=== PATIENT | female | born 1960 | race Caucasian/White ===

== ENCOUNTER 2020-12-02 18:14 | Emergency (ER) | payer SELFPAY ==
--- NOTE | ~2020-12-02 | XR_ITS ---
XR knee RT 3V DATE: 12/02/2020 19:05 INDICATION: Leg injury from dog TECHNIQUE: 3 views including crosstable lateral COMPARISON: None FINDINGS: There is tricompartment osteoarthritis, greatest at medial compartment. No fracture or dislocation or joint effusion. No periosteal reaction or bone destruction. IMPRESSION: Osteoarthritis Reviewed, dictated and finalized at location A. IMPRESSION: Osteoarthritis
--- NOTE | 2020-12-02 18:27 | ED.LOWEXIN ---
HPI - Extremity Injury (Lower) General Chief Complaint: Extremity Injury, Lower Stated Complaint: fell hurt knee Time Seen by Provider: 12/02/20 18:28 Source: patient Mode of arrival: wheelchair Limitations: no limitations History of Present Illness HPI Narrative: 59-year-old woman with a history of osteoarthritis of the knees comes in today complaining of right knee pain that started after a dog ran in to the lateral aspect of her right knee. She states she has only limited weight-bearing. She denies any numbness or tingling. She denies any other injury. She has had injections for OA in her left knee but not her right. complaint: knee injury, leg injury and fall Type of Injury: blunt Severity: moderate Relieving factors: rest Exacerbating factors: weight bearing, movement and palpation Associated symptoms: able to partially bear weight Other symptoms: none Related Data Home Medications Medication Instructions Recorded Confirmed albuterol sulfate [ProAir HFA] 1 inh INHALATION QID PRN 12/02/20 12/02/20 fluticasone propion-salmeterol 1 inh INHALATION Q12H 12/02/20 12/02/20 [Advair Diskus] loratadine [Claritin] 10 mg PO DAILY 12/02/20 12/02/20 Allergies Allergy/AdvReac Type Severity Reaction Status Date / Time No Known Allergies Allergy Verified 12/02/20 18:41 Review of Systems Gastrointestinal: Gastrointestinal: Denies nausea and Denies vomiting Musculoskeletal: Musculoskeletal: Denies back pain and Reports arthralgias Integumentary/Breasts: Skin/Breast: Denies pruritus and Denies rash Neurologic: Denies vertigo and Denies syncope Hematologic/Lymphatic: Hematologic/Lymphatic: Denies easy bleeding and Denies easy bruising Allergic/Immunologic: Allergic/Immunologic: Denies lip swelling and Denies throat swelling [facility] Past Medical History Medical History (Updated 12/02/20 @ 19:25 by Dick Ledesma MD) Asthma Osteoarthritis Social History Social History (Updated 12/02/20 @ 18:42 by Dick Ledesma MD) Smoking status: Never smoker Alcohol intake: current Alcohol use details: rarely Substance use: never Living arrangements: with family Gender identity (if verbalized by the patient): Female Exam Const: General: healthy appearing and alert Orientation/consciousness: patient oriented x3 Limitations: no limitations Other: Moderate acute distress Eyes: Conjunctivae: conjunctivae normal Pupils: Equal, round and reactive pupils present EOM: EOMs intact bilaterally Resp: Effort & Inspection: normal respiratory effort and not labored Auscultation: clear to auscultation bilaterally, no rales, no rhonchi and no wheezes Cardio: Rhythm: regular rhythm Heart sounds: no murmurs Skin: General skin exam: normal color, no jaundice and no pallor Rashes: no rashes Neuro: General: patient oriented x3, moves all extremities, no focal motor deficits and CN's II-XI intact bilaterally Speech: normal speech Gait exam (Neuro): Normal gait present Extrem: General: normal to inspection and no clubbing, cyanosis or edema Other: There is mild swelling of the right knee and tenderness to palpation along the mediolateral joint lines of the right knee. There is no evident laxity to varus, valgus, anterior drawer and Maurice's stress of the knee. Exam was somewhat limited by discomfort. There is also bruising and swelling over the proximal fibula. Psych: Appearance: grossly normal and well kempt Mental Status: mental status grossly normal Affect: normal affect Attitude: cooperative Thought content: Yes Normal thought content present Course Vital Signs Vital signs: Vital Signs Temperature 36.3 C L 12/02/20 18:34 Pulse Rate 72 12/02/20 18:34 Respiratory Rate 20 12/02/20 18:34 Blood Pressure 146/80 H 12/02/20 18:34 Pulse Oximetry 97 12/02/20 18:34 Temperature 36.3 C L 12/02/20 18:34 Pulse Rate 72 12/02/20 18:34 Respiratory Rate 20 12/02/20 18:34 Blood Pres
[2020-12-02 18:34] VITALS: BP 146/80; PULSE 72; RESP 20; TEMP 36.3; O2SAT 97
[2020-12-02 19:58] VITALS: BP 147/72; PULSE 76; RESP 20; TEMP 36.7; O2SAT 98
== END 2020-12-02 20:00 | disposition home or self-care (01) ==
PROVIDERS: Emergency Provider Emergency Medicine; PCP Internal Medicine
DX: S83.91XA Sprain of unspecified site of right knee, initial encounter (principal); W54.1XXA Struck by dog, initial encounter
CPT/HCPCS: 73562; 99283; L1830

== ENCOUNTER 2022-07-25 12:01 | Outpatient (CLI) | payer OTHER, SELFPAY ==
--- NOTE | 2022-07-25 12:59 | ECG_ITS ---
Measurements Intervals [place] Rate: 60 P: 56 LA: 150 QRS: 48 QRSD: 87 T: 43 QT: 414 QTc: 414 Interpretive Statements SINUS RHYTHM POSSIBLE LEFT ATRIAL ENLARGEMENT INCOMPLETE RIGHT BUNDLE BRANCH BLOCK BORDERLINE ECG NO PREVIOUS ECG AVAILABLE FOR COMPARISON Electronically Signed On 07-25-2022 13:24:17 TALENT SPECIALIST by Lance Thomas D.O.
[2022-07-25 13:32] LABS: Basophils Absolute Auto 0.1 K/mm3 (0.0-0.1); Basophils Percent Auto 0.7 % (0.2-1.2); Eosinophils Absolute Auto 0.1 K/mm3 (0-0.3); Eosinophils Percent Auto 1.7 % (0-4.4); Hematocrit 34.3 % (37.0-47.0); Hemoglobin 11.3 g/dL (12.0-15.0); Immature Granulocyte Absolute 0.02 K/mm3 (0.00-0.031); Immature Granulocyte Percent A 0.3 % (0-0.5); Lymphocytes Absolute Auto 1.74 K/mm3 (0.9-3.2); Lymphocytes Percent Auto 24.7 % (18.3-44.2); Mean Corpuscular HGB Conc 32.9 g/dl (32-36); Mean Corpuscular Hemoglobin 31.2 pg (26-34); Mean Corpuscular Volume 94.8 fl (80-100); Mean Platelet Volume 9.5 fl (7.4-10.4); Monocytes Absolute Auto 0.6 K/mm3 (0.1-0.6); Monocytes Percent Auto 8.2 % (2.6-8.5); Neutrophils Absolute Auto 4.5 K/mm3 (1.3-6.7); Neutrophils Percent Auto 64.4 % (45.5-73.1); Platelet Count Result 270 k/mm3 (150-375); Red Blood Count 3.62 M/mm3 (4.2-5.4); Red Cell Distribution Width 12.2 % (11.5-14.5); White Blood Count 7.1 K/mm3 (4.5-10.0)
== END 2022-07-25 12:02 | disposition home or self-care (01) ==
LOC: ANHSURGERY 12:07
PROVIDERS: PCP Internal Medicine; Visit Provider Orthopaedic Surgery
DX: M17.12 Unilateral primary osteoarthritis, left knee (principal); I45.10 Unspecified right bundle-branch block
CPT/HCPCS: 36415; 85025; 93005

== ENCOUNTER 2022-08-20 01:38 | Day surgery (SDC) | payer OTHER, SELFPAY ==
[2022-07-25 12:13] VITALS: BMI 32.3
--- NOTE | 2022-07-25 12:36 | PC.NURSE ---
Report to the Outpatient Waiting Room, entrance under the green pavilion located off [facility], at time __1130 on date __08/20/22 . Planned Procedure Time: __1330 . Time changes happen often and if your time is changed the preop area will call you the afternoon before. - You and your visitor will be asked to self-screen and do not enter if you have any COVID symptoms. - We encourage only one visitor and NO visitors under age 16 are allowed at this time. Your visitor will receive communication by the phone number that is given day of service. - The patient visitor is requested to social distance or may leave the building when not with patient due to restrictions. - A mask is required within the hospital. Patients may have clear liquids (water, carbonated beverages, clear teas, apple juice) until 3 hours prior to surgery with a maximum of 20 ounces. - No food from midnight until time of surgery - Infants may have breast milk until 4 hours before surgery, formula 6 hours prior to surgery. - Children will be allowed to drink immediately following surgery. If applicable, please bring a bottle or sippy cup to assist with drinking. Juice, water, soda, and popsicles are readily available. For infants on formula, please bring formula the day of surgery. Pacifiers are allowed. Take the following medications with a SIP of water the morning of surgery: ____ADVAIR INHALER Medications to discontinue per physician ____IBUPROFEN 7 DAYS PRE OP PER DR TEE, ALL VITAMINS AND SUPPLEMENTS 3 DAYS PRE OP Date to take last dose__IBUPROFEN 08/12/22 ALL VITAMINS/SUPP 08/16/22 Please no make-up, nail sinhala, hairspray, perfume, deodorant, or body powder the day of surgery. No jewelry (including any body piercings) or valuables the day of surgery, leave them at home. Please take a shower or bath the night before, or the morning of, surgery with an antibacterial soap. Wear comfortable, loose fitting clothing. Children are encouraged to wear pajamas. - Jewelry must be removed prior to entering the operating room. Rings and piercings that are not removed may be cut off. - The hospital will not accept responsibility for valuables. - Please leave all valuables, including medications, at home the day of surgery. If you are going home after surgery, a licensed sprinkling truck driver must drive you home. - NO public transportation without another adult. - We recommend that an adult stay with you for 24 hours following discharge. - We also recommend that you do not drive, make important decision, drink alcoholic beverages, or take any drugs that were not prescribed by your health care provider for at least 24 hours after your discharge time. Follow any additional instructions given to you from your surgeon. If you or anyone in your household have experienced Covid symptoms in the past week, please notify your surgeon or the nurse liaison at the phone number below for possible testing. VERBAL AND WRITTEN instructions given to __PATIENT AND DAUGHTER AMY and asked if any additional questions and then verbalized understanding. Patient advised to call surgeon office or pre surgery nurse liaison [phone] if any additional questions.
[2022-07-25 12:55] VITALS: BP 147/88; PULSE 67; RESP 18; TEMP 36.6; O2SAT 98
[2022-08-20] VITALS (9 sets, daily range): BP systolic 136–152; BP diastolic 64–83; PULSE 65–83; RESP 12–16; TEMP 36.2–36.3; O2SAT 97–100
--- NOTE | ~2022-08-20 | XR_ITS ---
EXAMINATION: XR knee LT 2V DATE: 08/20/2022 15:02 LOOM WINDER TENDER INDICATION: Left partial knee arthroplasty TECHNIQUE: 2 views left knee FINDINGS: There is a left medial unicompartmental knee arthroplasty in expected position. Subcutaneo us gas with fluid and air in the joint are consistent with recent surgery. No evidence of periprosthe tic fracture. IMPRESSION: 1. Recent left medial unicompartmental knee arthroplasty. Reviewed, dictated and finalized at location A. WINDER TENDER
--- NOTE | 2022-08-20 07:10 | WPDHPUPDATE1 ---
History and Physical Update Update Date/Time: 08/20/22 07:10 History and Physical has been reviewed, including an updated exam of the patient. There are NO changes in the patient's condition. Risks, benefits, and alternatives have been discussed and questions answered. Patient agrees to proceed with procedure.
[2022-08-20] MEDS: ACETAMINOPHEN 500 MG TABLET 1000 MG PO (12:00)
[2022-08-20] MEDS: LACTATED RINGERS 1,000 ML 30 ML IV CONT ×2 (12:00→15:36)
--- NOTE | 2022-08-20 12:24 | WPDANESEPPF ---
Anes - Initial Pre Proc Eval Procedure: Operation Date: 08/20/22 13:30 Proposed Procedures p Left Partial Knee Arthroplasty - Doug Benitez MD Date/Time: 08/20/22 12:24 Surgeon: Doug Benitez MD Pre Op Diagnosis: primary OA left knee Patient Data Age: 61 Gender: F Height: 1.65 m Weight: 88 kg Last Vital Signs Temp 36.6 C 07/25/22 12:55 Pulse 67 07/25/22 12:55 Resp 18 07/25/22 12:55 BP 147/88 H 07/25/22 12:55 Pulse Ox 98 07/25/22 12:55 O2 Del Method Room Air 07/25/22 12:55 Allergies Allergy/AdvReac Type Severity Reaction Status Date / Time animal dander Allergy Unknown Itching/SOB Verified 07/25/22 14:37 pollen extracts Allergy Unknown Sneezing Verified 07/25/22 14:37 codeine AdvReac Nausea and Verified 07/25/22 14:37 Vomiting Home Medications Medication Instructions Recorded Confirmed Type albuterol sulfate 90 mcg/actuation 1 inh inhalation QID PRN Shortness 12/02/20 07/26/22 History aerosol inhaler (ProAir HFA) Of Breath Or Wheezing fluticasone 250 mcg-salmeterol 50 1 inh inhalation Q12H 12/02/20 07/26/22 History mcg/dose blistr powdr for inhalation (Advair Diskus) loratadine 10 mg tablet (Claritin) 10 mg PO DAILY 12/02/20 07/26/22 History ibuprofen 200 mg tablet 200 mg PO Q6H PRN Pain 06/06/22 07/26/22 History ascorbic acid (vitamin C) 1,000 mg 1 g PO DAILY 07/25/22 07/26/22 History capsule cholecalciferol (vitamin D3) 50 50 mcg PO DAILY 07/25/22 07/26/22 History mcg (2,000 unit) tablet cyanocobalamin (vitamin B-12) 2,500 mcg PO DAILY 07/25/22 07/26/22 History 2,500 mcg tablet magnesium 200 mg tablet 400 mg PO DAILY 07/25/22 07/26/22 History vitamin A 2,400 mcg capsule 2,400 mcg PO DAILY 07/25/22 07/26/22 History Patient hx anesthesia problems: none Family hx anesthesia problems: none Results Review: All pre-operative results and documents have been reviewed as part of the pre-operative evaluation. [facility] Past Medical History Medical History Asthma Osteoarthritis Family History Family History Other Cancer of kidney Osteoporosis Skin cancer Social History Social History Smoking status: Never smoker Alcohol intake: current Drinks per week: 1 Alcohol use details: rarely Substance use: never Lack of Transportation: No Lack of Food: Never True Current Housing: I Have Housing Concerned About Future Housing: No Difficulty Paying Gas/Electric Bills: No Difficulty Paying for Meds: No Currently Unemployed: No Education: Bachelor's Degree Difficulty w/ Childcare or Family Care: No Living arrangements: alone Gender identity (if verbalized by the patient): Female Spiritual care concerns: No Anes - Eval Final PreProcedure Day of Procedure 08/20/22 12:24 Patient weight: obese Heart: regular rate and rhythm Lungs: clear to auscultation Airway: Mallampati scale class II Neurological: alert and oriented Last oral intake: >/= 8 hours ASA classification: II Emergent: no Anesthetic plan: proceed Anesthesia type and monitoring: general LMA and standard monitoring Results Review: All pre-operative results and documents have been reviewed as part of the pre-operative evaluation. Informed Consent: The patient's anesthetic plan and its attendant risks and benefits were discussed with the patient/family/POA. Questions were solicited and answers provided to the satisfaction of the patient/family/POA.
[2022-08-20] MEDS: TRANEXAMIC ACID 1,000MG/ISO100 1,000 MG/100 ML BAG 200 MG IVPB (12:30)
--- NOTE | 2022-08-20 12:44 | WPDANESPNB ---
Anes - Peripheral Nerve Block Date/Time: 08/20/22 12:44 I have discussed with the patient/family/POA the placement of a peripheral nerve block for post-operative pain management, including associated risks, benefits, complications, and side effects. Alternative methods of post-operative analgesia were detailed. Questions were solicited and answers provided to the satisfaction of the patient/family/POA. Time-Out: A pre-procedural Time-Out was completed immediately before starting the procedure and confirmed: Patient Identification, Site, Procedure, Patient Position and the Availability of Requisite Equipment. Clinical Indications: Acute post-operative pain management requested by the operative surgeon. Nerve Block Insertion Note Anes-nerve block: adductor canal left Patient position: supine Skin prep: chlorhexidine Needle: 22 gauge, stimulating, insulated echogenic needle. Needle length: 80 mm Technique: ultrasound Technique comment: mid2mg [id number] Injectate: bupivacaine 0.5% with epi 5 mcg/ml (30ml no epi) and dexamethasone (mg) (4) Observations: tolerated well Complications: none Procedure start time:: 1234 Procedure end time:: 1241
[2022-08-20] MEDS: ceFAZolin 2 GM/D5W 50 ML 2 GM/50 ML BAG IVPB (12:59)
[2022-08-20] MEDS: fentaNYL CITRATE INJ (*CRX) 100 MCG/2 ML VIAL 25 MCG IV PUSH ×2 (15:08→15:11)
--- NOTE | 2022-08-20 15:08 | W.PM.PROC2 ---
Procedure Note - Detailed Date of Procedure 08/20/22 Pre-op Diagnosis primary OA left knee Post-op Diagnosis Same Procedure Performed Partial knee arthroplasty, left knee, medial compartment. Surgeon Doug Benitez MD Anesthesia General Findings ACL intact. Good bone quality. -2 distal femoral resection Description of Procedure The patient was given a general anesthetic. Preoperative antibiotics were given. The knee was prepped and draped in the usual sterile fashion. A longitudinal incision was created along the medial aspect of the patellar tendon. A minimally invasive optimized mid vastus approach was completed. No medial release was taken. The external alignment guide was used to cut the tibia with anatomic posterior slope. A 4 millimeter resection was taken. The spacer block technique was utilized to measure flexion and extension gaps after the osteophytes were removed. The difference was used to calculate the distal resection. The distal cutting block was utilized to cut the distal femur. The AP and chamfer block was utilized for this last cuts. The femur and tibia were sized. Range of motion and gap balancing was assessed. This was tested with the 1.5 millimeter spacer. The bony surfaces were cleaned with lavaged. Lug holes were drilled. The real components were cemented into position. Excess cement was carefully removed. The tourniquet was released. Meticulous hemostasis was maintained. The wound was closed with interrupted 1 Vicryl suture followed by a running 0 Quill suture and 2-0 Quill suture. Steri-Strips are placed in the skin the patient was extubated and brought to recovery room in stable condition. There were no complications. Implants [employer] PK[employer] system femur size 2, tibia size 2, 9mm polyethylene insert. One batch Simplex antibiotic cement. Estimated Blood Loss 20 Drains No Complications No immediate complications Condition Stable Disposition PACU [facility] Billing Surgery - Charge Forward: Surgery Billing
[2022-08-20] MEDS: ONDANSETRON INJ 4 MG/2 ML VIAL IV PUSH (15:45)
--- NOTE | 2022-08-20 16:18 | SUR.PHASEII ---
1618 - physical therapy here to work with pt using walker.
== END 2022-08-20 17:05 | disposition home or self-care (01) ==
PROVIDERS: PCP Internal Medicine; Visit Provider Orthopaedic Surgery
PROC: (CPT 27446; principal; 2022-08-20 13:30)
DX: M17.12 Unilateral primary osteoarthritis, left knee (principal); G89.18 Other acute postprocedural pain; J45.909 Unspecified asthma, uncomplicated; E66.9 Obesity, unspecified; Z68.31 Body mass index [BMI] 31.0-31.9, adult; Z79.51 Long term (current) use of inhaled steroids
CPT/HCPCS: 27447; 64447; 73560; 97110; 97116; 97161; A9270; C1713; C1776; J0171; J0690; J1100; J1885; J2250; J2405; J2704; J2795; J3010; J7120

== ENCOUNTER 2023-07-16 09:19 | Outpatient (CLI) | payer OTHER, SELFPAY ==
--- NOTE | 2023-07-16 09:57 | ECG_ITS ---
Measurements Intervals [place] Rate: 75 P: -1 [place]: 159 QRS: 5 QRSD: 88 T: 15 QT: 365 QTc: 410 Interpretive Statements SINUS RHYTHM BASELINE ARTIFACT- I, II, III, AVR, AVL, AVF, V4 NORMAL ECG COMPARED TO ECG 07/25/2022 13:12:23 NO SIGNIFICANT CHANGES Electronically Signed On 07-16-2023 10:26:07 CDT by Lance Thomas D.O.
[2023-07-16 10:35] LABS: Basophils Absolute Auto 0.1 K/mm3 (0.0-0.1); Basophils Percent Auto 0.8 % (0.2-1.2); Eosinophils Absolute Auto 0.2 K/mm3 (0-0.3); Eosinophils Percent Auto 2.4 % (0-4.4); Hematocrit 36.9 % (37.0-47.0); Hemoglobin 11.8 g/dL (12.0-15.0); Immature Granulocyte Absolute 0.03 K/mm3 (0.00-0.031); Immature Granulocyte Percent A 0.5 % (0-0.5); Lymphocytes Absolute Auto 1.57 K/mm3 (0.9-3.2); Lymphocytes Percent Auto 25.4 % (18.3-44.2); Mean Corpuscular Hemoglobin 31.6 pg (26-34); Mean Corpuscular Volume 98.7 fl (80-100); Mean Platelet Volume 9.8 fl (7.4-10.4); Monocytes Absolute Auto 0.6 K/mm3 (0.1-0.6); Monocytes Percent Auto 10.4 % (2.6-8.5); Neutrophils Absolute Auto 3.7 K/mm3 (1.3-6.7); Neutrophils Percent Auto 60.5 % (45.5-73.1); Platelet Count Result 273 k/mm3 (150-375); Red Blood Count 3.74 M/mm3 (4.2-5.4); Red Cell Distribution Width 12.3 % (11.5-14.5); White Blood Count 6.2 K/mm3 (4.5-10.0)
== END 2023-07-16 09:20 | disposition home or self-care (01) ==
LOC: ANHSURGERY 09:24
PROVIDERS: PCP Physician Assistant; Visit Provider Orthopaedic Surgery
DX: Z01.818 Encounter for other preprocedural examination (principal); M17.11 Unilateral primary osteoarthritis, right knee
CPT/HCPCS: 36415; 85025; 87081; 93005

== ENCOUNTER 2023-10-24 07:48 | Outpatient (CLI) | payer OTHER, SELFPAY ==
[2023-10-24 08:15] LABS: Basophils Absolute Auto 0.1 K/mm3 (0.0-0.1); Basophils Percent Auto 1.1 % (0.2-1.2); Eosinophils Absolute Auto 0.2 K/mm3 (0-0.3); Eosinophils Percent Auto 3.1 % (0-4.4); Hematocrit 36.5 % (37.0-47.0); Hemoglobin 12.1 g/dL (12.0-15.0); Immature Granulocyte Absolute 0.01 K/mm3 (0.00-0.031); Immature Granulocyte Percent A 0.2 % (0-0.5); Lymphocytes Absolute Auto 1.76 K/mm3 (0.9-3.2); Lymphocytes Percent Auto 32.1 % (18.3-44.2); Mean Corpuscular HGB Conc 33.2 g/dl (32-36); Mean Corpuscular Volume 96.6 fl (80-100); Mean Platelet Volume 9.5 fl (7.4-10.4); Monocytes Absolute Auto 0.5 K/mm3 (0.1-0.6); Monocytes Percent Auto 9.5 % (2.6-8.5); Platelet Count Result 264 k/mm3 (150-375); Red Blood Count 3.78 M/mm3 (4.2-5.4); Red Cell Distribution Width 12.7 % (11.5-14.5); White Blood Count 5.5 K/mm3 (4.5-10.0)
== END 2023-10-24 07:49 | disposition home or self-care (01) ==
PROVIDERS: PCP Physician Assistant; Visit Provider Orthopaedic Surgery
DX: M17.11 Unilateral primary osteoarthritis, right knee (principal)
CPT/HCPCS: 36415; 85025

== ENCOUNTER 2023-10-31 06:34 | Day surgery (SDC) | payer OTHER, SELFPAY ==
--- NOTE | 2023-07-16 09:32 | PC.NURSE ---
PRE-OP INSTRUCTIONS, PLEASE READ CAREFULLY Report to the Outpatient Waiting Room, entrance under the green pavilion located off [facility], at time _0600_ on date _08/12/23_. Planned Procedure Time: _0730_. BRING WALKER & LEAVE IN THE CAR Time changes happen often and if your time is changed the preop area will call you the afternoon before. - You and your visitor will be asked to self-screen and do not enter if you have any COVID symptoms. - A mask is optional within the hospital at this time. Patients may have clear liquids (water, carbonated beverages, clear teas, apple juice) until 3 hours prior to surgery (0430 AM) with a maximum of 20 ounces. - No food from midnight until time of surgery Take the following medications with a SIP of water the morning of surgery: _INHALER_ DO NOT STOP ANY OF YOUR OTHER PRESCRIPTION MEDICATIONS PRIOR TO SURGERY ?EXCEPT THE FOLLOWING Medications to discontinue per DR. TEE - _IBUPROFEN 7 DAYS PRIOR TO SURGERY, Date to take last dose 08/04/23_ Medications to discontinue per ANESTHESIA - _VITAMINS/SUPPLEMENTS 3 DAYS PRIOR TO SURGERY, Date to take last dose 08/08/23_ Please no make-up, nail irish, hairspray, perfume, deodorant, or body powder the day of surgery. No jewelry (including any body piercings) or valuables the day of surgery, leave them at home. Please take a shower or bath the night before, or the morning of, surgery with an antibacterial soap. Wear comfortable, loose fitting clothing. - Jewelry must be removed prior to entering the operating room. Rings and piercings that are not removed may be cut off. - The hospital will not accept responsibility for valuables. - Please leave all valuables, including medications, at home the day of surgery. If you are going home after surgery, a licensed auto crane driver must drive you home. - NO public transportation without another adult if you receive anesthesia. - We recommend that an adult stay with you for 24 hours following discharge. - We also recommend that you do not drive, make important decision, drink alcoholic beverages, or take any drugs that were not prescribed by your health care provider for at least 24 hours after your discharge time. Follow any additional instructions given to you from your surgeon. If you or anyone in your household have experienced Covid symptoms in the past week, please notify your surgeon or the nurse liaison at the phone number below for possible testing. Instructions given to _PATIENT_and asked if any additional questions and then verbalized understanding. Patient advised to call surgeon office or pre surgery nurse liaison [phone] if any additional questions.
[2023-07-16 09:44] VITALS: BP 130/74; PULSE 92; RESP 18; TEMP 36.7; O2SAT 100; BMI 32.5
[2023-10-21 08:28] VITALS: BMI 31.8
--- NOTE | 2023-10-21 08:34 | PC.NURSE ---
PRE-OP INSTRUCTIONS, PLEASE READ CAREFULLY Report to the Outpatient Waiting Room, entrance under the green pavilion located off [facility], at time _1000_ on date _10/31/23_. Planned Procedure Time: _1200_. Time changes happen often and if your time is changed the preop area will call you the afternoon before. - You and your visitor will be asked to self-screen and do not enter if you have any COVID symptoms. - A mask is optional within the hospital at this time. Patients may have clear liquids (water, carbonated beverages, clear teas, apple juice) until 3 hours prior to surgery with a maximum of 20 ounces. - No food from midnight until time of surgery Take the following medications with a SIP of water the morning of surgery: _INHALER_ DO NOT STOP ANY OF YOUR OTHER PRESCRIPTION MEDICATIONS PRIOR TO SURGERY ?EXCEPT THE FOLLOWING Medications to discontinue per DR. TEE - _IBUPROFEN 7 DAYS PRIOR TO SURGERY, Date to take last dose 10/23/23_ Medications to discontinue per ANESTHESIA -_ALL VITAMINS/SUPPLEMENTS 3 DAYS PRIOR TO SURGERY, Date to take last dose 10/27/23_ Please no make-up, nail thai, hairspray, perfume, deodorant, or body powder the day of surgery. No jewelry (including any body piercings) or valuables the day of surgery, leave them at home. Please take a shower or bath the night before, or the morning of, surgery with an antibacterial soap. Wear comfortable, loose fitting clothing. - Jewelry must be removed prior to entering the operating room. Rings and piercings that are not removed may be cut off. - The hospital will not accept responsibility for valuables. - Please leave all valuables, including medications, at home the day of surgery. If you are going home after surgery, a licensed tower truck driver must drive you home. - NO public transportation without another adult if you receive anesthesia. - We recommend that an adult stay with you for 24 hours following discharge. - We also recommend that you do not drive, make important decision, drink alcoholic beverages, or take any drugs that were not prescribed by your health care provider for at least 24 hours after your discharge time. Follow any additional instructions given to you from your surgeon. If you or anyone in your household have experienced Covid symptoms in the past week, please notify your surgeon or the nurse liaison at the phone number below for possible testing. Telephone instructions given to _PATIENT_and asked if any additional questions and then verbalized understanding. Patient advised to call surgeon office or pre surgery nurse liaison [phone] if any additional questions.
--- NOTE | 2023-10-30 14:37 | WPDANESEPPF ---
Anes - Initial Pre Proc Eval Procedure: Operation Date: 10/31/23 11:00 Proposed Procedures p Right Partial Knee Arthroplasty - Doug Benitez MD Date/Time: 10/30/23 14:37 Surgeon: Doug Benitez MD Pre Op Diagnosis: right knee arthritis Patient Data Age: 62 Gender: F Height: 1.65 m Weight: 86.81 kg Last Vital Signs Temp 36.7 C 07/16/23 09:44 Pulse 92 07/16/23 09:44 Resp 18 07/16/23 09:44 BP 130/74 07/16/23 09:44 Pulse Ox 100 07/16/23 09:44 O2 Del Method Room Air 07/16/23 09:44 Allergies Allergy/AdvReac Type Severity Reaction Status Date / Time animal dander Allergy Unknown Itching/SOB Verified 10/31/23 09:48 pollen extracts Allergy Unknown Sneezing Verified 10/31/23 09:48 codeine AdvReac Nausea and Verified 10/31/23 09:48 Vomiting Home Medications Medication Instructions Recorded Confirmed Type albuterol sulfate 90 mcg/actuation 1 inh inhalation QID PRN Shortness 12/02/20 10/21/23 History aerosol inhaler (ProAir HFA) Of Breath Or Wheezing fluticasone 250 mcg-salmeterol 50 1 inh inhalation QAM 12/02/20 10/31/23 History mcg/dose blistr powdr for inhalation (Advair Diskus) loratadine 10 mg tablet (Claritin) 10 mg PO DAILY 12/02/20 10/31/23 History ibuprofen 200 mg tablet 200 mg PO Q6H PRN Pain 06/06/22 10/21/23 History ascorbic acid (vitamin C) 1,000 mg 1 g PO DAILY 07/25/22 10/31/23 History capsule cholecalciferol (vitamin D3) 50 50 mcg PO DAILY 07/25/22 10/31/23 History mcg (2,000 unit) tablet cyanocobalamin (vitamin B-12) 2,500 mcg PO DAILY 07/25/22 10/31/23 History 2,500 mcg tablet magnesium 200 mg tablet 400 mg PO DAILY 07/25/22 10/31/23 History vitamin A 2,400 mcg capsule 2,400 mcg PO DAILY 07/25/22 10/21/23 History Patient hx anesthesia problems: none Family hx anesthesia problems: none Results Review: All pre-operative results and documents have been reviewed as part of the pre-operative evaluation. [facility] Past Medical History Medical History Asthma Osteoarthritis Surgical History Surgical History History of total left knee replacement (~08/20/22) Family History Family History Other Cancer of kidney Osteoporosis Skin cancer Social History Social History Smoking status: Never smoker Second hand tobacco smoke exposure: No Additional smoking assessment comments: PT DENIES ALL FORMS OF TOBACCO USE Alcohol intake: current Drinks per week: 1 Alcohol use details: rarely Substance use: never Substance use type: does not use Lack of Transportation: No Lack of Food: Never True Current Housing: I Have Housing Concerned About Future Housing: No Difficulty Paying Gas/Electric Bills: No Difficulty Paying for Meds: No Currently Unemployed: No Education: Bachelor's Degree Difficulty w/ Childcare or Family Care: No Living arrangements: alone Gender identity (if verbalized by the patient): Female Spiritual care concerns: No Anes - Eval Final PreProcedure Day of Procedure 10/30/23 14:37 Patient weight: obese Heart: regular rate and rhythm Lungs: clear to auscultation Airway: Mallampati scale class II Neurological: alert and oriented Last oral intake: >/= 8 hours ASA classification: II Emergent: no Anesthetic plan: proceed Anesthesia type and monitoring: general LMA and standard monitoring Results Review: All pre-operative results and documents have been reviewed as part of the pre-operative evaluation. Informed Consent: The patient's anesthetic plan and its attendant risks and benefits were discussed with the patient/family/POA. Questions were solicited and answers provided to the satisfaction of the patient/family/POA.
[2023-10-31] VITALS (10 sets, daily range): BP systolic 134–149; BP diastolic 63–81; PULSE 65–90; RESP 12–18; TEMP 36.4–36.6; O2SAT 95–100
--- NOTE | ~2023-10-31 | XR_ITS ---
EXAMINATION: KNEE ONE/TWO VIEW-RIGHT DATE: 10/31/2023 13:03 INDICATION: Postoperative evaluation following right knee medial unicompartmental arthroplasty TECHNIQUE: Anteroposterior and lateral views of the right knee were obtained. COMPARISON: None. FINDINGS: Right knee medial unicompartmental arthroplasty appears well seated and in near anatomic alignment. No fractures identified. Expected postoperative subcutaneous and intra-articular gas. IMPRESSION: 1. Right knee medial unicompartmental arthroplasty, negative for postoperative purposes. Reviewed, dictated and finalized at location A. [employer]
[2023-10-31] MEDS: ACETAMINOPHEN 500 MG TABLET 1000 MG PO (09:56)
[2023-10-31] MEDS: LACTATED RINGERS 1,000 ML 30 ML IV CONT ×2 (10:06→12:41)
[2023-10-31] MEDS: TRANEXAMIC ACID 1,000MG/ISO100 1,000 MG/100 ML BAG 200 MG IVPB (10:07)
--- NOTE | 2023-10-31 10:23 | WPDHPUPDATE1 ---
History and Physical Update Update Date/Time: 10/31/23 10:23 History and Physical has been reviewed, including an updated exam of the patient. There are NO changes in the patient's condition. Risks, benefits, and alternatives have been discussed and questions answered. Patient agrees to proceed with procedure.
[2023-10-31] MEDS: ceFAZolin 2 GM/D5W 50 ML 2 GM/50 ML BAG IVPB (11:04)
--- NOTE | 2023-10-31 11:26 | WPDANESPNB ---
Anes - Peripheral Nerve Block Date/Time: 10/31/23 11:26 I have discussed with the patient/family/POA the placement of a peripheral nerve block for post-operative pain management, including associated risks, benefits, complications, and side effects. Alternative methods of post-operative analgesia were detailed. Questions were solicited and answers provided to the satisfaction of the patient/family/POA. Time-Out: A pre-procedural Time-Out was completed immediately before starting the procedure and confirmed: Patient Identification, Site, Procedure, Patient Position and the Availability of Requisite Equipment. Clinical Indications: Acute post-operative pain management requested by the operative surgeon. Nerve Block Insertion Note Anes-nerve block: adductor canal right Patient position: supine Skin prep: chlorhexidine Needle: 22 gauge, stimulating, insulated echogenic needle. Needle length: 80 mm Technique: ultrasound Injectate: bupivacaine 0.5% with epi 5 mcg/ml (30cc - no epi) Observations: tolerated well Complications: none Procedure start time:: 1055 Procedure end time:: 105
[2023-10-31] MEDS: SODIUM CHLORIDE 0.9% IV 38.7 ML, ROPivacaine HCL 1% 200 MG, KETOROLAC INJ (*BKC) 15 MG,... INFILTRATE (11:27)
[2023-10-31] MEDS: GENTAMICIN BONE CEMENT REFOBACIN 1 EACH TOPICAL (11:40)
[2023-10-31] MEDS: fentaNYL CITRATE INJ (*CRX) 100 MCG/2 ML VIAL 25 MCG IV PUSH ×2 (13:23→13:25)
[2023-10-31] MEDS: oxyCODONE HCL (*CRX) 5 MG TAB IR PO (13:57)
--- NOTE | 2023-10-31 14:32 | P.OP_ITS ---
Procedure Note - Detailed Date of Procedure 10/31/23 Pre-op Diagnosis Right knee arthritis Post-op Diagnosis Same Procedure Performed Partial knee arthroplasty, right knee, medial compartment. Surgeon Doug Benitez MD Anesthesia General Findings Generalized laxity with hyperextension preoperatively. Care taken to avoid over stuffing the medial compartment. ACL intact. No significant synovitis. Minimal bone wear. Description of Procedure The patient was given a general anesthetic. Preoperative antibiotics were given. The knee was prepped and draped in the usual sterile fashion. A longitudinal incision was created along the medial aspect of the patellar tendon. A minimally invasive optimized mid vastus approach was completed. No medial release was taken. The external alignment guide was used to cut the tibia with anatomic posterior slope. A 4 millimeter resection was taken. The spacer block technique was utilized to measure flexion and extension gaps after the osteophytes were removed. The difference was used to calculate the distal resection. The distal cutting block was utilized to cut the distal femur. The AP and chamfer block was utilized for this last cuts. The femur and tibia were sized. Range of motion and gap balancing was assessed. This was tested with the 1.5 millimeter spacer. 2.5 mm gap in extension and 1.5 in flexion. The bony surfaces were cleaned with lavaged. Lug holes were drilled. The real components were cemented into position. Excess cement was carefully removed. The tourniquet was released. Meticulous hemostasis was maintained. The wound was closed with interrupted 1 Vicryl suture followed by a running 0 Quill suture and 2-0 Quill suture. Steri-Strips are placed in the skin the patient was extubated and brought to recovery room in stable condition. There were no complications. Implants [employer]R system femur size 2, tibia size 2, 8mm polyethylene insert . One batch Simplex antibiotic cement. Estimated Blood Loss 25 Drains No Complications No immediate complications Condition Stable Disposition PACU [facility] Billing Surgery - Charge Forward: Surgery Billing
--- NOTE | 2023-10-31 15:15 | SUR.PHASEII ---
PT/OT have seen patient and state she is safe to discharge home.
== END 2023-10-31 15:16 | disposition home or self-care (01) ==
PROVIDERS: PCP Physician Assistant; Visit Provider Orthopaedic Surgery
PROC: (CPT 27446; principal; 2023-10-31 11:00)
DX: M17.11 Unilateral primary osteoarthritis, right knee (principal); J45.909 Unspecified asthma, uncomplicated; E66.9 Obesity, unspecified; Z68.31 Body mass index [BMI] 31.0-31.9, adult; Z79.51 Long term (current) use of inhaled steroids
CPT/HCPCS: 27446; 73560; 97110; 97161; 97165; 97530; 97535; A9270; C1713; C1776; J0171; J0690; J1100; J1885; J2250; J2371; J2405; J2704; J2795; J3010; J7120

== ENCOUNTER 2023-12-19 09:53 | Outpatient (CLI) | payer OTHER, SELFPAY ==
--- NOTE | ~2023-12-19 | XR_ITS ---
XR knee RT 3V DATE: 12/19/2023 10:15 INDICATION: Right artificial knee joint TECHNIQUE: Export and standing AP and lateral views COMPARISON: None FINDINGS: Status post medial compartment joint replacement. Small suprapatellar knee joint effusion is suggested. There is slight periarticular spurring of the p atella. Lateral compartment joint space is well preserved. No fracture or dislocation, periosteal reaction or bone destruction, radiopaque intra-articular loose body or chondrocalcinosis is noted. Osteopenia. IMPRESSION: Medial compartment arthroplasty Possible small suprapatellar knee joint effusion Mild patellofemoral osteoarthritis Reviewed, dictated and finalized at location B.
== END 2023-12-19 09:54 | disposition home or self-care (01) ==
PROVIDERS: PCP Physician Assistant; Visit Provider Physician Assistant Surgical
DX: M17.11 Unilateral primary osteoarthritis, right knee (principal); Z96.651 Presence of right artificial knee joint
CPT/HCPCS: 73562

== ENCOUNTER 2024-04-19 09:05 | Outpatient (CLI) | payer OTHER, SELFPAY ==
--- NOTE | ~2024-04-19 | XR_ITS ---
Right Knee Technique: AP, lateral, and sunrise views were obtained. Clinical History: Arthroplasty COMPARISON: 12/19/2023 Findings: No fracture or dislocation is seen. Stable medial compartment arthroplasty.. Soft tissues a re unremarkable. No joint effusion is seen. Impression: No acute abnormality. Stable medial compartment hemiarthroplasty. Reviewed, dictated and finalized at location . Impression: No acute abnormality. Stable medial compartment hemiarthroplasty.
--- NOTE | ~2024-04-19 | XR_ITS ---
Left Knee Technique: AP, lateral, and sunrise views were obtained. Clinical History: Arthroplasty Findings: No fracture or dislocation is seen. Medial compartment hemiarthroplasty is unchanged. Mild patellar spurring. Soft tissues are unremarkable. No joint effusion is seen. Impression: Stable medial compartment hemiarthroplasty. Mild patellar spurring. Reviewed, dictated and finalized at location . Impression: Stable medial compartment hemiarthroplasty. Mild patellar spurring.
== END 2024-04-19 09:06 | disposition home or self-care (01) ==
LOC: ANHIMG 09:11
PROVIDERS: PCP Internal Medicine; Visit Provider Orthopaedic Surgery
DX: M25.762 Osteophyte, left knee (principal); Z96.653 Presence of artificial knee joint, bilateral
CPT/HCPCS: 73562